=== PATIENT | female | born 1970 | race African-American/Black ===

== ENCOUNTER 2020-12-20 15:35 | Emergency (ER) | payer MEDICARE, MEDICAID ==
[~2020-12-20] VITALS: Ht 167.6 cm; Wt 100.0 kg
[2020-12-20] MEDS ORDERED: ACETAMINOPHEN 325MG TABLET PO ONE (16:45)
[2020-12-20] MEDS ORDERED: MORPHINE SULFATE 4 MG/ML CPJ (NOT FOR IM USE) IV STA (18:28)
[2020-12-20] MEDS ORDERED: ONDANSETRON HCL 4MG/2ML INJ IV STA (18:28)
[2020-12-20] MEDS ORDERED: SODIUM CHLORIDE 0.9% 1,000 ML IV ONE (18:30)
[2020-12-20 20:20] LABS: CLARITY URINE CLOUDY (CLEAR); COLOR URINE YELLOW (YELLOW); KETONES URINE NEGATIVE (NEGATIVE); LEUKOCYTE ESTERASE URINE 2+ (NEGATIVE); NITRITE URINE NEGATIVE (NEGATIVE); OCCULT BLOOD URINE NEGATIVE (NEGATIVE); PROTEIN URINE NEGATIVE (NEGATIVE); SPECIFIC GRAVITY URINE 1.011 (1.005-1.030); UROBILINOGEN URINE 0.2 E.U./dL (0.2-1.0)
[2020-12-20 20:26] LABS: HEMATOCRIT. 37.6 % (36.0-48.0); HEMOGLOBIN. 12.6 g/dL (12.0-16.0); LYMPHOCYTES % 28.1 % (20.0-50.0); MEAN CORPUSCULAR HEMOGLOBIN 31.8 pg (28.0-32.0); MEAN CORPUSCULAR VOLUME 94.3 fL (81.0-99.0); MEAN PLATELET VOLUME 8.6 fl (7.4-10.4); MONOCYTES % 8.2 % (2.0-8.0); NEUTROPHILS % 60.7 % (40.0-76.0); PLATELET 238 x1000/uL (130-400); RED BLOOD CELL COUNT 3.98 mill/uL (4.2-5.4); RED CELL DISTRIBUTION WIDTH 13.4 % (11.6-14.6)
[2020-12-20 20:35] LABS: PROTHROMBIN TIME 10.7 sec (9.6-11.0)
[2020-12-20 21:01] LABS: CHLORIDE 104 mEq/L (98-107)
[2020-12-20] MEDS ORDERED: IOHEXOL-300 100 ML BOTTLE ONE (21:38)
[2020-12-20] MEDS ORDERED: CEFTRIAXONE 1 G PREMIX 50 ML IV ONE (22:15)
[2020-12-20 23:25] VITALS: BP 175/85
[2020-12-20] MEDS ORDERED: HYDROCODONE/ACETAMINOPHEN 5/325MG TABLET PO ONE (23:30)
[2020-12-21] MEDS ORDERED: CEPH500T MT (00:47)
[2020-12-21] MEDS ORDERED: HYDR-4346 MT (00:47)
[2020-12-22] MEDS ORDERED: CEPH500T MT (13:50)
[2020-12-22] MEDS ORDERED: HYDR-4346 MT (13:50)
== END 2020-12-21 01:01 | disposition home or self-care (01) ==
LOC: ER 15:35
DX: N39.0 Urinary tract infection, site not specified (principal); N83.201 Unspecified ovarian cyst, right side; E03.9 Hypothyroidism, unspecified; D17.39 Benign lipomatous neoplasm of skin and subcutaneous tissue of other sites; M06.9 Rheumatoid arthritis, unspecified; F12.10 Cannabis abuse, uncomplicated; Z90.710 Acquired absence of both cervix and uterus; Z98.890 Other specified postprocedural states; Z88.0 Allergy status to penicillin
CPT/HCPCS: 36415; 71045; 71260; 74177; 76830; 76856; 80053; 81003; 83690; 83880; 84443; 84484; 85025; 85610; 87086; 93005; 93970; 96365; 99285; J0696; J2270; J2405; J7030; Q9967